=== PATIENT | female | born 1975 | race Caucasian/White ===

== ENCOUNTER 2017-06-06 22:45 | Emergency (ER) | payer SELFPAY ==
[~2017-06-06] VITALS: Ht 157.4 cm; Wt 81.6 kg
[~2017-06-06 22:45] MED LIST: ALBUTEROL0.09 MG/A2 IH; AMOXICILLIN500 M2 PO; AMOXICILLIN500 MG PO; AMOXIL500 MG PO; ATENOLOL50 MG PO; ATIVAN1 MG PO; ATOXIMETIN-B1 CAP PO; BIRTH CONTROL1 EAC1 PO; CELEXA20 MG PO; CYCLOBENZAPRINE5 M3 PO; DIFLUCAN150 MG PO; MEDROL DOSEPAK4 MG PO; MOTRIN800 MG PO; Motrin,Rufen800 MG PO; NORGESTIMATE-E1 EACH PO; PREDNISONE20 MG PO; PROTONIX40 MG PO; PROZAC20 MG PO; QUINAPRIL5 MG PO; ROBITUSSIN PO; TENORMIN25 M1 PO; ULTRAM50 MG PO; VIBRAMYCIN100 MG PO; VICODIN 5/500 505 MG PO; VITAMIN C1 TAB PO; XANAX0.5 MG PO; ZITHROMAX Z PA250 MG PO; ZOFRAN ODT4 MG PO; ZOFRAN4 MG PO
[2017-06-06 23:45] VITALS: BP 160/82
[2017-06-06] MEDS ORDERED: MEDROL DOSEPAK4 MG PO (23:51)
== END 2017-06-07 00:26 | disposition home or self-care (01) ==
LOC: ED 22:45
DX: H69.81 Other specified disorders of Eustachian tube, right ear (principal); I10 Essential (primary) hypertension; R68.84 Jaw pain; F17.200 Nicotine dependence, unspecified, uncomplicated; Z88.1 Allergy status to other antibiotic agents; Z88.6 Allergy status to analgesic agent; Z88.8 Allergy status to other drugs, medicaments and biological substances; Z79.899 Other long term (current) drug therapy

== ENCOUNTER 2017-06-11 16:21 | Emergency (ER) | payer SELFPAY ==
[~2017-06-11] VITALS: Ht 157.4 cm; Wt 81.6 kg
[2017-06-11 17:21] LABS: BASO % 0.3 % (0.0-1.0); EOS % 0.1 % (1.0-4.0); HEMATOCRIT 44.9 % (37.0-47.0); HEMOGLOBIN 15.1 g/dl (12.0-16.0); IG # 0.1 10*3/uL (0.0-0.1); LYMPH # 1.7 10*3/uL (1.3-4.4); LYMPH % 12.5 % (27.0-41.0); MEAN CORPUSCULAR HGB 29.6 pg (27.0-31.0); MEAN CORPUSCULAR HGB CONC 33.6 g/dl (33.0-37.0); MEAN PLATELET VOLUME 10.4 fl (9.6-12.3); MONO # 0.4 10*3/uL (0.1-1.0); MONO % 2.8 % (3.0-9.0); NEUT # 11.3 10*3/uL (2.3-7.9); NEUT % 83.9 % (47.0-73.0); PLATELET COUNT AUTOMATED 355 10*3/uL (130-400); RED CELL DISTRI WIDTH 13.3 % (0-14.5); WHITE BLOOD COUNT 13.5 10*3/uL (4.8-10.8)
[2017-06-11 17:27] LABS: INTERNATIONAL NORM RATIO 0.9 (2.0-3.5)
[2017-06-11 17:36] LABS: ALBUMIN 3.2 gm/dl (3.1-4.5); ALKALINE PHOSPHATASE 62 U/L (45-117); BILIRUBIN, TOTAL 0.3 mg/dl (0.2-1.0); BUN 12 mg/dl (7-24); CARBON DIOXIDE 22 mmol/L (21-32); CHLORIDE 102 mmol/L (98-107); CPK 28 U/L (26-192); EST GLOM FILT AFRICAN AMERICAN > 60 ml/min; GLUCOSE 111 mg/dL (65-99); LDH 115 U/L (84-246); POTASSIUM 3.7 mmol/L (3.5-5.1); SGOT/AST 10 IU/L (3-35); SGPT/ALT 18 U/L (12-78); SODIUM 137 mmol/L (136-145); TOTAL PROTEIN 7.5 gm/dL (6.4-8.2)
[2017-06-11 17:37] LABS: CKMB < 0.5 ng/ml (0.5-3.6); TROPONIN I < 0.015 ng/ml (<0.045)
[2017-06-11 18:44] VITALS: BP 140/82
[2017-06-11] MEDS ORDERED: ZITHROMAX250 MG PO (18:47)
== END 2017-06-11 18:52 | disposition home or self-care (01) ==
LOC: ED 16:21
PROVIDERS: Physician Assistant
DX: R51 Headache (principal); T38.0X5A Adverse effect of glucocorticoids and synthetic analogues, initial encounter; H92.01 Otalgia, right ear; R06.02 Shortness of breath; R11.0 Nausea; F17.200 Nicotine dependence, unspecified, uncomplicated; Z88.1 Allergy status to other antibiotic agents; Z88.6 Allergy status to analgesic agent; Z88.8 Allergy status to other drugs, medicaments and biological substances; Z79.899 Other long term (current) drug therapy; Y92.9 Unspecified place or not applicable

== ENCOUNTER 2017-10-30 14:29 | Emergency (ER) | payer SELFPAY ==
[~2017-10-30] VITALS: Ht 157.4 cm; Wt 79.4 kg
[~2017-10-30 14:29] MED LIST changes: +ZITHROMAX250 MG PO
[2017-10-30 14:52] VITALS: BP 169/88
[2017-10-30] MEDS ORDERED: AMOXICILLIN500 M2 PO (15:29)
[2017-10-30] MEDS ORDERED: FLONASE ALLERG9.9 ML NAS (15:29)
== END 2017-10-30 15:37 | disposition home or self-care (01) ==
LOC: ED 14:29
DX: J32.9 Chronic sinusitis, unspecified (principal); F17.200 Nicotine dependence, unspecified, uncomplicated; Z88.8 Allergy status to other drugs, medicaments and biological substances; Z88.6 Allergy status to analgesic agent; Z79.899 Other long term (current) drug therapy

== ENCOUNTER 2018-10-14 12:48 | Emergency (ER) | payer SELFPAY ==
[~2018-10-14] VITALS: Ht 157.4 cm; Wt 86.2 kg
[~2018-10-14 12:48] MED LIST changes: +FLONASE ALLERG9.9 ML NAS
[2018-10-14 12:52] VITALS: BP 156/89
[2018-10-14] MEDS ORDERED: ROBITUSSIN DM 105 ML PO (15:21)
[2018-10-14] MEDS ORDERED: ZITHROMAX250 MG PO (15:21)
== END 2018-10-14 15:35 | disposition home or self-care (01) ==
LOC: ED 12:48
DX: J20.9 Acute bronchitis, unspecified (principal); F17.200 Nicotine dependence, unspecified, uncomplicated; Z88.1 Allergy status to other antibiotic agents; Z88.5 Allergy status to narcotic agent; Z88.8 Allergy status to other drugs, medicaments and biological substances; Z79.899 Other long term (current) drug therapy

== ENCOUNTER → 2021-03-01 | Outpatient (CLI) | payer SELFPAY ==
[~2021-03-01] MED LIST changes: +ROBITUSSIN DM 105 ML PO
== END | disposition home or self-care (01) ==
LOC: COVID19 15:27
PROVIDERS: ATTEND Family Medicine
DX: J06.9 Acute upper respiratory infection, unspecified (principal); Z20.822 Contact with and (suspected) exposure to COVID-19

== ENCOUNTER 2021-07-01 21:40 | Emergency (ER) | payer SELFPAY ==
[~2021-07-01] VITALS: Ht 157.4 cm; Wt 90.7 kg
[2021-07-02 01:04] VITALS: BP 161/103
[2021-07-02] MEDS ORDERED: LORAZEPAM1 MG PO (01:14)
[2021-07-02] MEDS ORDERED: VENLAFAXINE HY150 M2 PO (01:14)
[2021-07-02] MEDS ORDERED: HYDROCHLOROTHIA25 M1 PO (01:14)
[2021-07-02] MEDS ORDERED: FLUOXETINE HCL40 MG PO (01:14)
[2021-07-02] MEDS ORDERED: AMLODIPINE BESYL5 MG PO (01:14)
[2021-07-02] MEDS ORDERED: ALYACEN 1-35-21 EACH PO (01:15)
[2021-07-02 01:27] LABS: BASO # 0.1 10*3/uL (0.0-0.1); BASO % 0.6 % (0.0-1.0); EOS # 0.2 10*3/uL (0.0-0.4); EOS % 1.7 % (1.0-4.0); HEMATOCRIT 37.5 % (37.0-47.0); LYMPH # 2.5 10*3/uL (1.3-4.4); LYMPH % 20.9 % (27.0-41.0); MEAN CELL VOLUME 83.7 fl (81.0-99.0); MEAN CORPUSCULAR HGB 27.7 pg (27.0-31.0); MEAN CORPUSCULAR HGB CONC 33.1 g/dl (33.0-37.0); MEAN PLATELET VOLUME 10.3 fl (9.6-12.3); MONO # 0.5 10*3/uL (0.1-1.0); MONO % 3.7 % (3.0-9.0); NEUT # 8.8 10*3/uL (2.3-7.9); NEUT % 72.9 % (47.0-73.0); PLATELET COUNT AUTOMATED 408 10*3/uL (130-400); RED BLOOD COUNT 4.48 10*6/uL (4.10-5.10); RED CELL DISTRI WIDTH 15.9 % (0-14.5); WHITE BLOOD COUNT 12.1 10*3/uL (4.8-10.8)
[2021-07-02 01:46] LABS: ALBUMIN 3.3 gm/dl (3.1-4.5); ALKALINE PHOSPHATASE 59 U/L (45-117); BUN 7 mg/dl (7-24); CHLORIDE 104 mmol/L (98-107); CREATININE 0.49 mg/dL (0.55-1.02); POTASSIUM 3.1 mmol/L (3.5-5.1); SGOT/AST 14 IU/L (3-35); SGPT/ALT 21 U/L (12-78); SODIUM 138 mmol/L (136-145); TOTAL PROTEIN 7.4 gm/dL (6.4-8.2)
== END 2021-07-02 03:45 | disposition home or self-care (01) ==
LOC: ED 21:40
PROVIDERS: Emergency Medicine
DX: N93.8 Other specified abnormal uterine and vaginal bleeding (principal); E87.6 Hypokalemia; F17.200 Nicotine dependence, unspecified, uncomplicated; Z88.1 Allergy status to other antibiotic agents; Z88.8 Allergy status to other drugs, medicaments and biological substances; Z79.899 Other long term (current) drug therapy

== ENCOUNTER → 2021-08-21 | Outpatient (CLI) | payer OTHER ==
[~2021-08-21] MED LIST changes: +ALYACEN 1-35-21 EACH PO; +AMLODIPINE BESYL5 MG PO; +FLUOXETINE HCL40 MG PO; +HYDROCHLOROTHIA25 M1 PO; +LORAZEPAM1 MG PO; +VENLAFAXINE HY150 M2 PO
[2021-08-21 15:43] LABS: BASO # 0.1 10*3/uL (0.0-0.1); BASO % 0.7 % (0.0-1.0); EOS # 0.2 10*3/uL (0.0-0.4); EOS % 2.5 % (1.0-4.0); HEMATOCRIT 40.3 % (37.0-47.0); LYMPH # 1.7 10*3/uL (1.3-4.4); LYMPH % 20.7 % (27.0-41.0); MEAN CELL VOLUME 85.6 fl (81.0-99.0); MEAN CORPUSCULAR HGB 28.2 pg (27.0-31.0); MEAN PLATELET VOLUME 9.8 fl (9.6-12.3); MONO # 0.5 10*3/uL (0.1-1.0); NEUT # 5.8 10*3/uL (2.3-7.9); NEUT % 69.9 % (47.0-73.0); PLATELET COUNT AUTOMATED 367 10*3/uL (130-400); RED BLOOD COUNT 4.71 10*6/uL (4.10-5.10); RED CELL DISTRI WIDTH 13.5 % (0-14.5); WHITE BLOOD COUNT 8.3 10*3/uL (4.8-10.8)
== END | disposition home or self-care (01) ==
LOC: LAB 15:28
PROVIDERS: ATTEND Family Medicine
DX: D50.9 Iron deficiency anemia, unspecified (principal)

== ENCOUNTER 2025-03-01 19:38 | Emergency (ER) | payer SELFPAY ==
[~2025-03-01] VITALS: Ht 157.4 cm; Wt 97.1 kg
[2025-03-01] MEDS ORDERED: LAMICTAL100 MG PO (20:05)
[2025-03-01] MEDS ORDERED: COREG12.5 M1 PO (20:06)
[2025-03-01] MEDS ORDERED: LIPITOR10 MG PO (20:07)
[2025-03-01] MEDS ORDERED: POTASSIUM CHLO20 ME3 PO (20:08)
[2025-03-01] MEDS ORDERED: BENZTROPINE ME0.5 MG PO (20:08)
[2025-03-01] MEDS ORDERED: ABILIFY15 MG PO (20:09)
[2025-03-01] MEDS ORDERED: ESOMEPRAZOLE MA20 MG PO (20:10)
[2025-03-02] MEDS ORDERED: Acetaminophen/Hydrocodone 5 MG/325 MG TABLET PO ONE (02:40)
[2025-03-02] MEDS ORDERED: HYDROCODONE-AC1 EAC1 PO (02:52)
== END 2025-03-02 03:12 | disposition home or self-care (01) ==
LOC: ED 19:38
DX: M17.0 Bilateral primary osteoarthritis of knee (principal); F41.9 Anxiety disorder, unspecified; F32.A Depression, unspecified; J44.9 Chronic obstructive pulmonary disease, unspecified; K21.9 Gastro-esophageal reflux disease without esophagitis; G43.909 Migraine, unspecified, not intractable, without status migrainosus; Z88.1 Allergy status to other antibiotic agents; Z88.5 Allergy status to narcotic agent; Z79.899 Other long term (current) drug therapy

== ENCOUNTER 2025-05-29 23:23 | Emergency (ER) | payer SELFPAY ==
[~2025-05-29] VITALS: Ht 157.4 cm; Wt 90.7 kg
[~2025-05-29 23:23] MED LIST changes: +ABILIFY15 MG PO; +BENZTROPINE ME0.5 MG PO; +COREG12.5 M1 PO; +ESOMEPRAZOLE MA20 MG PO; +HYDROCODONE-AC1 EAC1 PO; +LAMICTAL100 MG PO; +LIPITOR10 MG PO; +POTASSIUM CHLO20 ME3 PO
[2025-05-29 23:41] VITALS: BP 171/83
[2025-05-29 23:54] LABS: BASO # 0.1 10*3/uL (0.0-0.1); BASO % 0.6 % (0.0-1.0); EOS # 0.3 10*3/uL (0.0-0.4); EOS % 2.4 % (1.0-4.0); MEAN CELL VOLUME 85.6 fl (81.0-99.0); MEAN CORPUSCULAR HGB 29.0 pg (27.0-31.0); MEAN PLATELET VOLUME 9.8 fl (9.6-12.3); MONO # 0.5 10*3/uL (0.1-1.0); MONO % 4.4 % (3.0-9.0); NEUT # 7.3 10*3/uL (2.3-7.9); NEUT % 69.7 % (47.0-73.0); NUCLEATED RED BLOOD CELL 0.0 % (0.0-0.0); NUCLEATED RED BLOOD CELL 0.0 10*3/uL (0.0-0.0); PLATELET COUNT AUTOMATED 345 10*3/uL (130-400); RED CELL DISTRI WIDTH 12.7 % (0-14.5)
[2025-05-30 00:15] LABS: BUN 11 mg/dl (9-23); SGPT/ALT 21 U/L (5-49)
[2025-05-30] MEDS ORDERED: SODIUM CHLORIDE 0.9% 500 ML IV ONE (01:05)
[2025-05-30] MEDS ORDERED: POTASSIUM CHLORIDE 20 MEQ TAB PO ONE (01:05)
== END 2025-05-30 02:46 | disposition home or self-care (01) ==
LOC: ED 23:23
PROVIDERS: Internal Medicine
DX: R07.89 Other chest pain (principal); E87.8 Other disorders of electrolyte and fluid balance, not elsewhere classified; R61 Generalized hyperhidrosis; R20.0 Anesthesia of skin; I10 Essential (primary) hypertension; E78.5 Hyperlipidemia, unspecified; Z88.1 Allergy status to other antibiotic agents; Z88.5 Allergy status to narcotic agent; Z88.8 Allergy status to other drugs, medicaments and biological substances; Z79.899 Other long term (current) drug therapy